=== PATIENT | female | born 1995 | race Caucasian/White ===

== ENCOUNTER → 2019-10-13 | Outpatient (CLI) | payer MEDICAID ==
[~2019-10-13] MED LIST: CIPR500S3 PO
== END | disposition home or self-care (01) ==
LOC: LAB 14:26
PROVIDERS: ATTEND Obstetrics & Gynecology
DX: Z01.818 Encounter for other preprocedural examination (principal); Z11.59 Encounter for screening for other viral diseases
CPT/HCPCS: C9803; U0003

== ENCOUNTER 2019-10-16 08:05 | Day surgery (SDC) | payer MEDICAID ==
[~2019-10-16] VITALS: Ht 165.1 cm; Wt 49.9 kg
[~2019-10-16 08:05] MED LIST changes: +LACTATED RINGERS 1,000 ML IV SCH
[2019-10-16] MEDS ORDERED: SKIN ADHESIVE 0.7 GM EA TOP ONE (08:25)
[2019-10-16] MEDS ORDERED: VASOPRESSIN 20 UNIT/ML 1ML ONE (08:26)
[2019-10-16] MEDS ORDERED: BUPIVACAINE HCL/PF 0.5% (5MG/ML) 10ML ONE (08:26)
[2019-10-16] MEDS ORDERED: SODIUM CHLORIDE 0.9% 1,000 ML IV ONE (08:55)
[2019-10-16] MEDS ORDERED: MEPERIDINE HCL/PF 25MG/ML CPJ IV PRN ×2 (09:00)
[2019-10-16] MEDS ORDERED: MORPHINE SULFATE 2 MG/ML CPJ (NOT FOR IM USE) IV PRN (09:00)
[2019-10-16] MEDS ORDERED: ONDANSETRON HCL 4MG/2ML INJ IV PRN (09:00)
[2019-10-16 09:12] LABS: UCG SCREEN NEGATIVE
[2019-10-16 09:13] LABS: BASOPHILS % 0.6 % (0.0-2.0); EOSINOPHILS % 0.7 % (0.0-5.0); HEMATOCRIT. 41.1 % (36.0-48.0); HEMOGLOBIN. 14.1 g/dL (12.0-16.0); MEAN CORPUSCULAR VOLUME 90.2 fL (81.0-99.0); MEAN PLATELET VOLUME 8.3 fl (7.4-10.4); MONOCYTES % 5.9 % (2.0-8.0); NEUTROPHILS % 66.8 % (40.0-76.0); PLATELET 259 x1000/uL (130-400); RED BLOOD CELL COUNT 4.56 mill/uL (4.2-5.4); RED CELL DISTRIBUTION WIDTH 13.8 % (11.6-14.6)
[2019-10-16 09:16] LABS: CHLORIDE 111 mEq/L (98-107)
[2019-10-16 09:21] LABS: INR 1.2; PARTIAL THROMBOPLASTIN TIME 26.5 sec (23.4-31.0); PROTHROMBIN TIME 12.2 sec (9.6-11.0)
[2019-10-16] MEDS ORDERED: FENTANYL CITRATE/PF 50MCG/ML 2ML VIAL ONE ×2 (09:47→09:54)
[2019-10-16] MEDS ORDERED: NEOSTIGMINE METHYLSULFATE 1MG/ML 10 ML VIAL ONE (09:47)
[2019-10-16] MEDS ORDERED: LIDOCAINE HCL/PF 1% 10 MG/ML 5ML VIAL ONE (09:48)
[2019-10-16] MEDS ORDERED: CEFAZOLIN SODIUM 1000MG/VIAL ONE (09:48)
[2019-10-16] MEDS ORDERED: ROCURONIUM BROMIDE 10MG/ML VIAL 5ML IV ONE (09:48)
[2019-10-16] MEDS ORDERED: METOCLOPRAMIDE HCL 10MG/2ML VIAL ONE (09:48)
[2019-10-16] MEDS ORDERED: SODIUM CHLORIDE 0.9% 10ML VIAL ONE (09:48)
[2019-10-16] MEDS ORDERED: PROPOFOL 200MG/20ML VIAL IV ONE (09:48)
[2019-10-16] MEDS ORDERED: GLYCOPYRROLATE 0.2 MG/ML 2ML VIAL ONE (09:48)
[2019-10-16] MEDS ORDERED: MIDAZOLAM HCL 2 MG/2 ML VIAL ONE (09:48)
[2019-10-16] MEDS ORDERED: ONDANSETRON HCL 4MG/2ML INJ ONE (09:48)
[2019-10-16] MEDS ORDERED: SUCCINYLCHOLINE CHLORIDE 200MG/10ML IV ONE (09:48)
[2019-10-16] MEDS ORDERED: HYDROMORPHONE HCL/PF 2MG/ML (OR) ONE (11:23)
[2019-10-16] MEDS ORDERED: KETOROLAC 30MG/ML VIAL ONE (11:28)
[2019-10-16] MEDS: HYDROMORPHONE HCL/PF 2MG/ML CPJ IV PRN ×3 (13:08→13:31)
[2019-10-16 13:31] VITALS: BP 129/78
== END 2019-10-16 15:23 | disposition home or self-care (01) ==
LOC: OR 08:05
PROVIDERS: ATTEND Obstetrics & Gynecology
DX: N83.201 Unspecified ovarian cyst, right side (principal); Z79.899 Other long term (current) drug therapy; Z98.890 Other specified postprocedural states; Z88.8 Allergy status to other drugs, medicaments and biological substances
CPT/HCPCS: 36415; 58662; 80048; 81025; 85025; 85610; 85730; 86850; 86900; 86901; 88304; J0330; J0690; J1170; J1885; J2175; J2250; J2405; J2704; J2765; J3010; J3490; S2900; J2710